=== PATIENT | female | born 1950 | race Caucasian/White ===

== ENCOUNTER → 2020-06-24 | Outpatient (CLI) | payer OTHER, MEDICARE ==
[~2020-06-24] MED LIST: CELEBREX 200 M200 M1 PO; CITRACAL + BON1 EACH PO; DAILY MULTIPLE1 EACH PO; LEVOTHYROXINE88 MC1 PO; LIPITOR20 MG PO; PROTONIX40 M2 PO
== END ==
LOC: LAB 14:09
PROVIDERS: ATTEND Orthopaedic Surgery
DX: Z01.812 Encounter for preprocedural laboratory examination (principal); Z20.828 Contact with and (suspected) exposure to other viral communicable diseases

== ENCOUNTER 2020-07-01 10:24 | Observation (INO) | payer OTHER, MEDICARE ==
[2020-06-24 12:51] LABS: URINE BILIRUBIN NEGATIVE (Negative); URINE BLOOD 2+ (Negative); URINE CLARITY CLEAR; URINE COLOR YELLOW; URINE GLUCOSE-RANDOM* NEGATIVE (Negative); URINE KETONES NEGATIVE (Negative); URINE LEUKOCYTES-REFLEX NEGATIVE (Negative); URINE NITRITE-REFLEX NEGATIVE (Negative); URINE PROTEIN (DIPSTICK) NEGATIVE (Negative); URINE UROBILINOGEN 0.2 E.U./dl (0.2-1.0)
[2020-06-24 13:04] LABS: HEMOGLOBIN 12.7 gm/dL (12.0-15.0); MCH 30.4 pg (26.0-34.0); MCHC 32.5 g/dL (28.0-37.0); MCV 93.5 fL (80.0-100.0); RBC 4.17 mil/uL (4.20-5.00); RDW 13.3 % (10.5-14.5); WBC 6.2 thou/uL (4.0-11.0)
[2020-06-24 13:18] LABS: ALBUMIN 3.7 g/dL (3.4-5.0); CALCIUM 9.3 mg/dL (8.5-10.1); CREATININE 1.1 mg/dL (0.6-1.0); POTASSIUM 4.7 mmol/L (3.5-5.1); PROTIME 10.5 Seconds (9.3-11.4)
[2020-06-24 13:39] LABS: CASTS None Seen /LPF (None Seen); CRYSTALS None Seen /LPF (None Seen); SQUAMOUS 0-3 Few /LPF (0-3)
[2020-06-24 13:40] LABS: BACTERIA-REFLEX 1-9 Few /HPF (None Seen); URINE RBC 0-2 Rare /HPF (0-2); URINE WBC-REFLEX None Seen /HPF (0-5)
[~2020-07-01] VITALS: Ht 152.4 cm; Wt 53.5 kg
[2020-07-01 11:31] VITALS: BP 148/53
[2020-07-01 15:05] VITALS: BP 133/54
--- NOTE | 2020-07-01 16:12 | NUR ---
ASSESSMENT: CM REVIEWED CHART. PT IS S/P [place]. PT REPORTS LIVING IN A HOUSE ALONE. PT STATES HER SISTER IS GOING TO BE STAYING WITH HER FOR A WHILE AT DISCHARGE TO HELP ASSIST. PT REPORTS LIVING IN A RANCH STYLE HOME THAT IS HANDICAP ACCESIBLE AND HAS NO STEPS TO ENTER OR ONCE INSIDE. SHE REPORTS HAVING A CANE BUT WILL NEED A WALKER FOR DISCHARGE. PT HAS NO PREFERENCE OF [employer]. CM NOTIFIED [facility] WHO WILL VERIFY INSURANCE AND DELIVER IN THE AM. PT REPORTS HAVING PHYSICAL THERAPY ARRANGED OUTPATIENT AT [facility]. PT WILL CONTINUE TO WORK WITH THERAPY AND POSSIBLE DISCHARGE TOMORROW, CM WILL CONTINUE TO FOLLOW.
--- NOTE | 2020-07-01 16:57 | NUR ---
PATIENT ARRIVED ON UNIT TO ROOM 448 FROM POST OP AFTER REPORT. ARRIVED AT 15:05 V.S 97.8 18 72 133/54 O2 SAT = 100 % 2L/NC. HEIGHT 5'0" WEIGHT = 118 LBS FLUIDS STARTED ASD ORDERED D5 1/2 NS AT 100 ML HR. HAS PICCO DRESSING INTACT TO LEFT HIP. HAS SCDS AND CHRISTO HOSE IN PLACE ORDERED, ICE BAG TO LEFT HIP. REGULAR DIET ORDERED FOR DINNER IS DRINKING WATER. NO N&V. NO PAIN. SBA ASSIST XS 1 TO BEDSIDE COMMODE. PT URINATED W/O PAIN OR DIFFICULTY. PT PLEASANT AND COOPERATIVE WITH CARE
[2020-07-01 20:45] VITALS: BP 120/54
[2020-07-02 04:20] VITALS: BP 102/32
[2020-07-02 05:19] LABS: HEMATOCRIT 29.5 % (37.0-47.0); HEMOGLOBIN 9.9 gm/dL (12.0-15.0); MCH 31.5 pg (26.0-34.0); MCHC 33.6 g/dL (28.0-37.0); MCV 93.8 fL (80.0-100.0); RBC 3.14 mil/uL (4.20-5.00); RDW 13.2 % (10.5-14.5); WBC 9.7 thou/uL (4.0-11.0)
--- NOTE | 2020-07-02 06:33 | NUR ---
ASSESSED AT START OF SHIFT. PT A&OX4. UP WITH ASSIST TO THE BSC. HYDROCODONE GIVEN FOR PAIN. IV INTACT WITH FLUIDS INFUSING. JOSÉ MIGUEL DRESSING, SCD'S, TEDHOSE INTACT. ICE BAG PLACED FOR COMFORT. FALL PREC IN PLACE AND WILL CONT TO MONITOR.
[2020-07-02 09:26] VITALS: BP 118/54
[2020-07-02 09:53] VITALS: BP 118/54
--- NOTE | 2020-07-02 09:54 | NUR ---
on-going assessment: PASCALE SPOKE WITH [facility] WHO IS DELIVERING A WALKER TO PTS ROOM TODAY. PLANS TO DISCHARGE TODAY.
--- NOTE | 2020-07-02 10:00 | NUR ---
assumed care at 0700. pt is weight bearing as tolerated. hip precaution. dressing on left hip is intact and dry, clean, intact. hob. iv is intact and shows no signs of redness or swelling. a&o x4. iv is intact and shows no signs of redness or swelling. bassam/david/scd hose are in place. ice pack on left hip. pt complains of pain and was given hydrocodone. will continue to monitor.
[2020-07-02 11:26] VITALS: BP 118/54
--- NOTE | 2020-07-02 21:07 | O ---
[facility] [place] [address] OPERATIVE REPORT Name: BRUCE LUJAN Room #: 448-P [facility] Bud Medellin#: [id number] Admission: 07/01/20 Attend Phys: Jluis Torres MD Discharge: 07/02/20 Date of : 50 Report #: [id number] THIS REPORT FOR: cc: Jed Estrella David J. DO Abraham, Scott M. MD ~ DATE OF SERVICE: 07/01/2020 PREOPERATIVE DIAGNOSIS: Left hip osteoarthritis. POSTOPERATIVE DIAGNOSIS: Left hip osteoarthritis. PROCEDURE: Left total hip arthroplasty. SURGEON: Jluis Torres MD. LAB TECH: Brisa James PA-C. INDICATIONS FOR LAB TECH: Throughout the case, extensive retraction and manipulation of the hip including dislocation and reduction was required. This was afforded to me by my practice assistant. ANESTHESIA: LMA. IMPLANTS: Lopez and Nephew size 13 high offset Synergy press-fit stem, a size 52 R3 acetabular cup with 1 acetabular screw and size 36, -3 cobalt chrome head and a single Accord cerclage cable for prophylactic femur fixation. ESTIMATED BLOOD LOSS: 50 mL. COMPLICATIONS: None. SPECIMENS: None. CONDITION UPON LEAVING THE OPERATING ROOM: Stable. INDICATIONS FOR PROCEDURE: The patient is a 70-year-old female with severe left hip osteoarthritis. She had failed conservative measures for this and after discussion with her, she elected for left total hip arthroplasty. DESCRIPTION OF PROCEDURE: Risks, benefits, alternatives, complications were discussed in detail with the patient including but not limited to risk of anesthesia, risk of damage to nerves, arteries, blood vessels, risk for infection, bleeding, risk for continued hip pain, leg length discrepancy, instability and need for reoperation. Informed consent was obtained from the [address] [address] OPERATIVE REPORT Name: LEBRUCE KAPLAN Room #: 448-P PRINCESS [place]#: [id number] Admission: 07/01/20 Attend Phys: Jluis Torres MD Discharge: 07/02/20 Date of : 50 Report #: [id number] patient. Left hip was appropriately marked in the preoperative holding area. IV Ancef was given for preoperative antibiotics. She was brought to the operating room and placed in supine position on operating room table. LMA anesthesia was induced without complication. She was then placed in the right lateral decubitus position with the left hip uppermost. Left hip and lower extremity were prepped and draped in normal sterile fashion. Timeout was performed properly identifying the patient and procedure as well as the instrumentation and implants. All in the operating room were in agreement. Standard posterior approach to the hip was made with 10 blade through the skin. Dissection was taken down sharply to the fascia. Deep flaps were developed medially and laterally. Fresh 10 blade was used to make a fascial incision. This was taken proximally and distally with curved Umanzor scissor. Charnley retractor was placed. Trochanteric bursa was taken down with Bovie cautery. Piriformis tendon was identified, tagged and taken down with Bovie. Short external rotators were also taken down with Bovie cautery. Capsulotomy was made and capsule ends were tagged for later repair. Hip was dislocated. There was extensive osteoarthritic change of the femoral head. Femoral neck cut was made 1 cm proximal to lesser trochanter based on preoperative templating and the femoral head was removed. Deep acetabular retractors were placed. Labrum was removed sharply. Pulvinar was removed with Bovie cautery. Acetabulum was then sequentially reamed up to a size 52, at which point, there was excellent bleeding cancellous bone. A size 51 trial cup was placed, found to have a good fit. A final size 52 R3 acetabular cup was placed and seated. One acetabular screw was placed for backup fixation and polyethylene liner for a 36 head was placed. Attention was then turned to the femur. One single Accord cable was placed proximal to the lesser trochanter around the proximal femur for prophylactic fixation. The femur was then reamed and broached up to a size 13, at which point, the size 13 broach was stable. This was trialed with a high offset neck and a 36+0 head. Hip was reduced, taken through range of motion, found to be stable, found to have equal leg lengths. Hip was dislocated. Broach was removed and final size 13 high offset Synergy press-fit stem was placed and seated. This did not seat quite as far as the broach and so we trialled with a 36, -3 head. Hip was reduced, taken through range of motion, found to be stable, found to have equal leg lengths. Hip was dislocated one last time and a final size 36, -3 cobalt chrome head was placed. Hip was reduced, taken through range of motion, found to be stable, found to have equal leg lengths. The hip was thoroughly irrigated with normal saline. Periarticular injection consisting of morphine, ropivacaine, epinephrine, Toradol was placed around the hip joint capsule. A gram of vancomycin was placed deep in the joint capsule and piriformis were repaired with 0 FiberWire. Fascia was closed with 0 Vicryl, skin was closed with 2-0 Vicryl, 3-0 Monocryl. [facility] [address] [place] [address] OPERATIVE REPORT Name: BRUCE LUJAN Room #: 448-P [facility] Bud Medell[place]#: [id number] Admission: 07/01/20 Attend Phys: Jluis Torres MD Discharge: 07/02/20 Date of : 50 Report #: [id number] Dermabond and a JOSÉ MIGUEL dressing was applied. The patient tolerated this procedure well and went to recovery room under care of anesthesia postoperatively. <ELECTRONICALLY SIGNED> By: Jluis Torres MD 07/02/20 2107 1421 1440 Jluis Torres MD /nt
== END 2020-07-02 12:34 | disposition home or self-care (01) ==
LOC: 4S 10:24 → TBA 10:24 → 4S 10:24 → PRE 10:55 → 4S 15:05
PROVIDERS: ADMIT Orthopaedic Surgery; ATTEND Orthopaedic Surgery
DX: M16.12 Unilateral primary osteoarthritis, left hip (principal); Z79.899 Other long term (current) drug therapy
CPT/HCPCS: 50010; 50101; 50382; 50414; 53000; 53078; 54118; 56524; 56527; 56528; 56530; 57095; 57103; 62110; 62900; 70005

== ENCOUNTER → 2021-06-01 | Outpatient (CLI) | payer OTHER, MEDICARE ==
[~2021-06-01] MED LIST changes: +MULTI VITAMIN1 EACH PO; +PROLIA60 MG/1 ML SUBQ
[2021-06-01 12:13] LABS: HEMATOCRIT 38.9 % (37.0-47.0); HEMOGLOBIN 12.8 gm/dL (12.0-15.0); MCH 31.4 pg (26.0-34.0); MCV 95.4 fL (80.0-100.0); RBC 4.08 mil/uL (4.20-5.00); RDW 14.8 % (10.5-14.5); WBC 6.4 thou/uL (4.0-11.0)
[2021-06-01 12:23] LABS: URINE BILIRUBIN NEGATIVE (Negative); URINE BLOOD TRACE (Negative); URINE CLARITY CLEAR; URINE COLOR YELLOW; URINE GLUCOSE-RANDOM* NEGATIVE (Negative); URINE KETONES NEGATIVE (Negative); URINE LEUKOCYTES-REFLEX TRACE (Negative); URINE NITRITE-REFLEX NEGATIVE (Negative); URINE PROTEIN (DIPSTICK) NEGATIVE (Negative); URINE SPECIFIC GRAVITY >= 1.030 (1.005-1.035); URINE UROBILINOGEN 0.2 E.U./dl (0.2-1.0)
--- NOTE | 2021-06-01 12:26 | EKG ---
[address] [address] ELECTROCARDIOGRAM REPORT Name: BRUCE LUJAN [id number] Admission: 06/01/21 Attend Phys: Jluis Torres MD Discharge: Date of : 50 Report #: [id number] [facility] Test Date: 2021-06-01 Test Time: 11:56:10 Pat Name: BRUCE LUJAN Department: Room: Gender: F Public Information Coordinator: DIALLO : 1950 Requested By: Jluis Torres Order Number: [id number] : Anthony Lam Measurements Intervals Tavares Rate: 61 P: 42 WI: 183 QRS: -6 QRSD: 109 T: 51 QT: 408 QTc: 411 Interpretive Statements Sinus rhythm No previous ECG available for comparison Electronically Signed On 06-01-2021 12:26:12 INVENTORY ANALYST by Anthony Lam [email or web address] <ELECTRONICALLY SIGNED> By: Anthony Lam MD, [facility] 06/01/21 1226 1156 1156 Anthony Lam MD, FACC /EPI
[2021-06-01 12:27] LABS: INR 1.02; PROTIME 11.1 Seconds (10.5-12.1)
[2021-06-01 12:37] LABS: ALBUMIN 3.6 g/dL (3.4-5.0); CALCIUM 9.5 mg/dL (8.5-10.1); POTASSIUM 5.2 mmol/L (3.5-5.1)
== END ==
LOC: PAC 10:41
PROVIDERS: ATTEND Orthopaedic Surgery
DX: M16.11 Unilateral primary osteoarthritis, right hip (principal)

== ENCOUNTER 2021-06-07 08:56 | Inpatient (IN) | payer OTHER, MEDICARE ==
[~2021-06-07] VITALS: Ht 152.4 cm; Wt 51.7 kg
[2021-06-07 10:18] VITALS: BP 141/58
[2021-06-07 19:10] VITALS: BP 92/38
--- NOTE | 2021-06-07 20:58 | NUR ---
PT ADMITTED AT 1745. PT IS A/O X4 AND IS UP WITH ASSISTANCE FOLLOWING PROCEDURE TO RIGHT HIP. VSS. C/O PAIN. PRN PAIN MEDICATION GIVEN DIRECTED. MEDICATIONS GIVEN PER AUG. FALL PRECUATIONS IN PLACE, CALL LIGHT IS WITHIN REACH. ADMISSION IS COMPLETE. PT HAS BEEN EDUCATED ON USE OF CALL LIGHT AND BED CONTROLS. PT CALLS OUT APPROPRIATELY FOR ASSISTANCE.
[2021-06-08 04:29] VITALS: BP 117/47
[2021-06-08 08:15] VITALS: BP 115/41
--- NOTE | 2021-06-08 09:28 | O ---
[facility] [place] [address] OPERATIVE REPORT Name: BRUCE LUJAN Room #: 433-I ADM IN M.R.#: [id number] Admission: 06/07/21 Attend Phys: Jluis Torres MD Discharge: Date of : 50 Report #: [id number] THIS REPORT FOR: cc: Jed Estrella David J. DO Abraham, Scott M. MD ~ DATE OF SERVICE: 06/07/2021 PREOPERATIVE DIAGNOSIS: Right hip osteoarthritis. POSTOPERATIVE DIAGNOSIS: Right hip osteoarthritis. PROCEDURE: Right total hip arthroplasty. SURGEON: Jluis Torres MD. CORRECTIONS COUNSELOR: Brisa James PA-C. INDICATION FOR CORRECTIONS COUNSELOR: Throughout the case, extensive retraction and manipulation of the hip including dislocation and reduction was required. This was afforded to me by my bilingual office assistant. ANESTHESIA: General. IMPLANTS: A Lopez and Nephew size 12 high offset Synergy press-fit stem, a size 52 R3 acetabular cup with a size 36+0 cobalt chrome head and a single Accord cerclage cable for prophylactic femur fixation. ESTIMATED BLOOD LOSS: 100 mL. COMPLICATIONS: None. SPECIMENS: None. CONDITION UPON LEAVING THE OR: Stable. INDICATIONS FOR PROCEDURE: The patient is a 71-year-old female with right hip osteoarthritis. She had failed conservative measures for this and after discussion with her, she elected for right total hip arthroplasty. DESCRIPTION OF PROCEDURE: Risks, benefits, alternatives, complications were discussed in detail with the patient including but not limited to risk of anesthesia, risk of damage to nerves, arteries, blood vessels, risk for infection, bleeding, risk for continued hip pain, leg length discrepancy, instability and need for reoperation. Informed consent was obtained from the patient. Right hip was appropriately marked in the preoperative holding area. [address] [address] OPERATIVE REPORT Name: LUJAN,BRUCE KAE Room #: 433-I ADM IN M.R.#: [id number] Admission: 06/07/21 Attend Phys: Jluis Torres MD Discharge: Date of : 50 Report #: [id number] IV Ancef was given for preoperative antibiotics. She was brought to the operating room and placed in supine position on the operating room table. General anesthesia was induced without complication. She was placed in the left lateral decubitus position with the right hip uppermost. Right hip and lower extremity were prepped and draped in normal sterile fashion. Timeout was performed properly identifying the patient and procedure as well as the instrumentation and implants. All in the operating room in agreement. Standard posterior approach to the hip was made with 10 blade through the skin. Dissection was taken down to the fascia with Bovie cautery and Wang elevator was used to clean off the fascia. Fresh 10 blade was used to make a fascial incision. This was taken proximally and distally with curved Umanzor scissor. Charnley retractor was placed. Trochanteric bursa was taken down with Bovie cautery. Piriformis tendon was identified, tagged and taken down with Bovie. Short external rotators were also taken down with Bovie cautery. Capsulotomy was made and capsule ends were tagged for later repair. Hip was dislocated. There was extensive osteoarthritic change of the femoral head. Femoral neck cut was made 1 cm proximal to the lesser trochanter based on preoperative templating and the femoral head was removed. Deep acetabular retractors were placed. Labrum was removed sharply. Pulvinar was removed with Bovie cautery. Acetabulum was sequentially reamed up to a size 52, at which point there was excellent bleeding cancellous bone. A size 51 trial cup was placed, found to have a good fit. Final size 52 R3 acetabular cup was placed and seated. One acetabular screw was placed for backup fixation and a polyethylene liner for a size 6 head was placed. Attention was turned to the femur. The femur was reamed and broached up to a size 12, at which point the size 12 broach was stable, this was trialed with a high offset neck and a 36+0 head. Hip was reduced, taken through range of motion, found to be stable, found to have equal leg lengths. Hip was dislocated. Broach was removed. A single Accord cerclage cable was placed around the proximal femur for prophylactic fixation and a final size 12 high offset Synergy press-fit stem was placed and seated. This was trialed again with a 36+0 head. Hip was reduced, taken through range of motion, found to be stable, found to have equal leg lengths. Hip was dislocated one last time and a final size 36+0 cobalt chrome head was placed. Hip was reduced, taken through range of motion, found to be stable, found to have equal leg lengths. Hip was thoroughly irrigated with normal saline. A periarticular injection consisting of morphine, ropivacaine, epinephrine, Toradol was placed around the hip joint capsule. A gram of vancomycin was placed deep in the joint. Fascia was closed with 0 Vicryl. Skin was closed with 2-0 Vicryl, 3-0 Monocryl. Dermabond and a JOSÉ MIGUEL dressing was applied. The patient tolerated this procedure well and went to recovery room under care of Anesthesia postoperatively. <ELECTRONICALLY SIGNED> By: Jluis Torres MD 06/08/21 0928 1330 1613 Jluis Torres MD /tiffany
--- NOTE | 2021-06-08 09:34 | NUR ---
Chart review. Right hip. She up working with physical therapy this morning. She voiced she has outpt therapy set up for appointment tomorrow. Has fww. Lives in ranch style home, no stair or steps. No anticipated needs, will cont following if needs arise.
--- NOTE | 2021-06-08 10:51 | NUR ---
ASSUMED CARE OF PT AT 0700 THIS MORNING. PT HAS HAD RT HIP REPLACEMENT AND ID A/OX4. NO COMPLAINTS EXCEPT HER BREAKFAST TRAY IS COLD AND WAFFLE IS SOGGY. PAIN RX WAS GIVEN PRIOR TO PHYS THPY AND OT EVAL. ASSESSMENTS NOTED IN CHART AND OTHERWISE UNREMARKABLE. FALL PRECAUTIONS ARE IN PLACE. CALL LIGHT AND OTHER NEEDS ARE IN REACH. MEDS AND TX GIVEN NEEDED AND SCHEDULED. WILL CONTINUE AND NOTE ANY CHANGES. NISA WITH PHYS THPY HAS CLEARED PT TO BE DISCHARGED. OT HAS ALSO CLEARED PT.
[2021-06-08 11:02] VITALS: BP 115/41
== END 2021-06-08 12:07 | disposition home or self-care (01) | DRG 470 ==
LOC: OR 08:56 → 4S 18:10 → OR 18:49 → 4S 06-08 12:07
PROVIDERS: ADMIT Orthopaedic Surgery; ATTEND Orthopaedic Surgery
PROC: 0SR902A Replacement of Right Hip Joint with Metal on Polyethylene Synthetic Substitute, Uncemented, Open Approach (ICD-10-PCS; principal; 2021-06-07)
DX: M16.11 Unilateral primary osteoarthritis, right hip (principal); Z20.822 Contact with and (suspected) exposure to COVID-19; Z88.8 Allergy status to other drugs, medicaments and biological substances
CPT/HCPCS: 10102; 10195; 50010; 50101; 50382; 50414; 51412; 53000; 53078; 53367; 54118; 56524; 56527; 56528; 56530; 57095; 57103; 57496; 62110; 62900; 70005